=== PATIENT | male | born 1975 | race Caucasian/White ===

== ENCOUNTER 2021-05-04 08:43 | Emergency (ER) | payer BC ==
[~2021-05-04] VITALS: Ht 190 cm; Wt 122.0 kg
[2021-05-04] MEDS ORDERED: NITROGLYCERIN 0.4 MG SL TABS BTL 25'S SL PRN (09:30)
[2021-05-04] MEDS ORDERED: ASPIRIN 81 MG CHEW (CHILDREN'S ASA) PO ONE (09:30)
[2021-05-04] MEDS ORDERED: LACTATED RINGERS 1,000 ML IV ONE (09:30)
[2021-05-04] MEDS ORDERED: CATHETER FLUSH 10 ML SYR IV PRN (09:45)
[2021-05-04] MEDS ORDERED: NS 100 ML (IVPB) BAG IV ONE (09:45)
[2021-05-04] MEDS ORDERED: IOHEXOL 350 MG/ML 100 ML (OMNIPAQUE 350) VIAL IV ONE (09:45)
[2021-05-04] MEDS ORDERED: HOLD METFORMIN - RECEIVED CONTRAST 20 ML VIAL IV SCH (09:45)
--- NOTE | 2021-05-04 09:56 | ED Chest Pain ---
General Chief Complaint: COVID19 Suspect/Confirmed Stated Complaint: CP,COUGHING UP BLOOD,COVID+ Nursing Triage Note: Pt tested positive for COVID n 04/29, symptoms started on 04/28. Pt reports not sleeping well due to not using cpap for sleep apnea to try to keep machine clean from COVID. Pt also reports chest pain starting this morning. Pt is concerned about blood clots due to hx of blood clots in family. Pt vomited this morning with blood tinged emesis. Pt has not taken morning BP meds. Source: patient Exam Limitations: no limitations History of Present Illness Date Seen by Provider: May 04, 2021 Time Seen by Provider: 09:39 Initial Comments Patient to the ER by private conveyance with chief complaint that about 3 days ago he was diagnosed positive with COVID-19. Is been staying in his camper to stay away from people and not using his CPAP for sleep apnea because he says he does not sure how to clean it properly. He says he woke up several times in the night gasping for air and today he was having some persistent feeling of pressure or discomfort going from his left chest through to his back. He does not have a history of heart disease but he has hypertension. He has a significant family history of blood clots although he himself has never had a blood clot or pulmonary embolism. He had an episode of nausea and vomiting earlier today with stringy bloody mucus and is having occasional nonproductive cough. Nursing reports his vital signs are okay. He is not having a fever presently. No history of lung disease. He does take allergy medicines, losartan and Coreg. He is a strong history of GERD and has not been taking his GERD medicine today nor has he eaten very much in the last couple days. Allergies and Home Medications Allergies Coded Allergies: tizanidine (Unverified Allergy, Unknown, 05/04/21) Patient Home Medication List Home Medication List Reviewed: Yes Review of Systems Review of Systems Constitutional: No chills; malaise; No weakness EENTM: No Blurred Vision, No Double Vision Respiratory: Cough, Shortness of Air Cardiovascular: See HPI, Chest Pain; Denies Lightheadedness, Denies Palpitations, Denies Syncope Gastrointestinal: Denies Constipated, Denies Diarrhea; Nausea, Poor Appetite, Vomiting Genitourinary: Denies Discharge, Denies Drainage Musculoskeletal: No back pain, No joint pain Skin: No pruritus, No rash Psychiatric/Neurological: Denies Headache, Denies Numbness, Denies Paresthesia All Other Systems Reviewed Negative Unless Noted: Yes Past Wcdzuat-Eslprc-Nwwslp Hx Patient Social History Tobacco Use?: No Smoking Status: Never a Smoker Smokeless Tobacco Frequency: Former User Use of E-Cig and/or Vaping dev: No Substance use?: No Alcohol Use?: Yes Alcohol Frequency: Once in a while Past Medical History Surgery/Hospitalization HX: hypertension Physical Exam Vital Signs Vital Signs - First Documented 05/04/21 09:16 Temp 37.2 Pulse 85 Resp 18 B/P (MAP) 165/110 (128) Pulse Ox 97 O2 Delivery Room Air Capillary Refill : Less Than 3 Seconds Height, Weight, BMI Height: '" Weight: lbs. oz. kg; 33.00 BMI Method: General Appearance: WD/WN, Anxious, Mild Distress HEENT: PERRL/EOMI, Pharynx Normal, Moist Mucous Membranes Neck: Normal Inspection, Non Tender Respiratory: Lungs Clear, Normal Breath Sounds, No Accessory Muscle Use, No Respiratory Distress Cardiovascular: Regular Rate, Rhythm, No Edema, Normal Peripheral Pulses Gastrointestinal: Normal Bowel Sounds, Non Tender, Soft Extremity: Normal Capillary Refill, Normal Inspection, No Pedal Edema Neurologic/Psychiatric: Alert, Oriented x3 Skin: Normal Color, Warm/Dry Progress/Results/Core Measures Results/Orders Lab Results Laboratory Tests Test 05/04/21 09:39 05/04/21 11:15 Range/Units White Blood Count 2.8 L 4.3-11.0 10^3/uL Red Blood Count 4.63 4.30-5.52 10^6/uL Hemoglobin 15.3 13.3-17.7 g/dL Hematocrit 43 40-54 % Mean Corpuscular Volume 92 80-99 fL Mean Corpuscular Hemoglobin 33 25-34 pg Mean Corpuscular Hemoglobin Concent 36 32-36 g/dL Red Cell Distribution Width 12.4 10.0-14.5 % Platelet Count 107 L 130-400 10^3/uL Mean Platelet Volume 11.7 9.0-12.2 fL Immature Granulocyte % (Auto) 0 % Neutrophils (%) (Auto) 67 42-75 % Lymphocytes (%) (Auto) 19 12-44 % Monocytes (%) (Auto) 11 0-12 % Eosinophils (%) (Auto) 2 0-10 % Basophils (%) (Auto) 0 0-10 % Neutrophils # (Auto) 1.9 1.8-7.8 10^3/uL Lymphocytes # (Auto) 0.5 L 1.0-4.0 10^3/uL Monocytes # (Auto) 0.3 0.0-1.0 10^3/uL Eosinophils # (Auto) 0.1 0.0-0.3 10^3/uL Basophils # (Auto) 0.0 0.0-0.1 10^3/uL Immature Granulocyte # (Auto) 0.0 0.0-0.1 10^3/uL Percent Immature Platelet Fraction 5.0 0.0-7.6 % Prothrombin Time 12.7 12.2-14.7 SEC INR Comment 0.9 0.8-1.4 Activated Partial Thromboplast Time 29 24-35 SEC Sodium Level 141 135-145 MMOL/L Potassium Level 3.8 3.6-5.0 MMOL/L Chloride Level 107 98-107 MMOL/L Carbon Dioxide Level 22 21-32 MMOL/L Anion Gap 12 5-14 MMOL/L Blood Urea Nitrogen 14 7-18 MG/DL Creatinine 1.05 0.60-1.30 MG/DL Estimat Glomerular Filtration Rate 76 BUN/Creatinine Ratio 13 Glucose Level 132 H 70-105 MG/DL Calcium Level 9.0 8.5-10.1 MG/DL Corrected Calcium 8.9 8.5-10.1 MG/DL Magnesium Level 1.7 1.6-2.4 MG/DL Total Bilirubin 0.6 0.1-1.0 MG/DL Aspartate Amino Transf (AST/SGOT) 30 5-34 U/L Alanine Aminotransferase (ALT/SGPT) 34 0-55 U/L Alkaline Phosphatase 57 40-136 U/L Myoglobin 49.1 10.0-92.0 NG/ML Troponin I < 0.028 < 0.028 <0.028 NG/ML Total Protein 7.0 6.4-8.2 GM/DL Albumin 4.1 3.2-4.5 GM/DL My Orders Orders - HEIDI HORNE Covid-19 External Lab Results (05/04/21 09:22) Continuous Ekg Monitoring (05/04/21 09:24) Ekg Tracing (05/04/21:24) Troponin I (05/04/21:24) Covid-19 External Lab Results (05/04/21:24) Cbc With Automated Diff (05/04/21:24) Magnesium (05/04/21:24) Chest 1 View, Ap/Pa Only (05/04/21:24) Comprehensive Metabolic Panel (05/04/21:24) Myoglobin Serum (05/04/21:24) Protime With Inr (05/04/21:24) Partial Thromboplastin Time (05/04/21:24) O2 (05/04/21:) Monitor-Rhythm Ecg Trace Only (05/04/21:24) Ed Iv/Invasive Line Start (05/04/21:24) Nitroglycerin 0.4 Mg Btl 25's (Nitrostat (05/04/21 09:30) Aspirin Chewable Tablet (Baby Aspirin Ch (05/04/21 09:30) Ct Angio Chest W (05/04/21 09:28) Ed Iv/Invasive Line Start (05/04/21 09:28) Lactated Ringers (Lr 1000 Ml Iv Solution (05/04/21 09:30) Iohexol Injection (Omnipaque 350 Mg/Ml 1 (05/04/21 09:45) Received Contrast (Hold Metformin- Contr (05/04/21 09:45) Sodium Chloride Flush (Catheter Flush Sy (05/04/21 09:45) Ns (Ivpb) (Sodium Chloride 0.9% Ivpb Bag (05/04/21 09:45) Troponin I (05/04/21 11:45) Medications Given in ED Current Medications Medications Dose Ordered Sig/Nav Route Start Time Stop Time Status Last Admin Dose Admin Aspirin 324 mg ONCE ONCE PO 05/04/21 09:30 05/04/21 09:31 DC 05/04/21 09:40 324 MG Iohexol 100 ml ONCE ONCE IV 05/04/21 09:45 05/04/21 09:46 DC 05/04/21 10:36 87 ML Lactated Ringer's 1,000 ml @ 0 mls/hr Q0M ONCE IV 05/04/21 09:30 05/04/21 09:31 DC 05/04/21 09:42 999 MLS/HR Sodium Chloride 10 ml NEEDED PRN IV 05/04/21 09:45 05/04/21 10:36 10 ML Sodium Chloride 100 ml ONCE ONCE IV 05/04/21 09:45 05/04/21 09:46 DC 05/04/21 10:36 80 ML Vital Signs/I&O 05/04/21 09:16 Temp 37.2 Pulse 85 Resp 18 B/P (MAP) 165/110 (128) Pulse Ox 97 O2 Delivery Room Air Blood Pressure Mean: 128 Progress Progress Note #1: Time: 09:54 Progress Note Aspirin, a liter of IV fluids and plan to get a CT angiogram of the chest to rule out blood clots given his significant family history. Suspect his discomfort could also be related to GERD. Plan to get an EKG and troponin If he has a rule out negative troponin when his heart score is only 2 points, low risk and he can follow-up outpatient afterwards. Progress Note #2: Time: 12:46 Progress Note Delta troponin is negative. He does not require oxygen and would be a candidate for monoclonal antibodies. We did discuss that they are authorized under an emergency use authorization by the FDA. We also discussed alternatives, risks and benefits and using a clinically supported decision-making process the patient has elected to pursue them at this time. We provide him with a handout. Initial ECG Impression Date: May 04, 2021 Initial ECG Impression Time: 09:44 Initial ECG Rate: 77 Initial ECG Rhythm: Normal Sinus Initial ECG Intervals: Normal Initial ECG Impression: Normal Comment Normal sinus rhythm without clinically relevant ST elevation or depression Diagnostic Imaging Diagonstic Imaging: CT (Angiogram) Plain Films/CT/US/NM/MRI: chest Comments [facility], [place] NAME: BARRETT [facility] REC#: [id number] PT STATUS: REG ER : 1975 PHYSICIAN: HEIDI HORNE MD ADMIT DATE: 05/04/21/ER Draft Date of Exam:05/04/21 CT ANGIO CHEST W PROCEDURE: CT angiography of the chest with contrast. TECHNIQUE: Multiple contiguous axial images were obtained through the chest after uneventful bolus administration of intravenous contrast. 3D reconstructed CTA MIP acquisitions were also performed. Auto Exposure Controls were utilized during the CT exam to meet ALARA standards for radiation dose reduction. INDICATION: Suspicion for COVID, chest pain and hemoptysis. FINDINGS: The pulmonary arterial branches are patent. No filling defect. No PE is identified. The thoracic aorta is patent and nonaneurysmal. There is no pleural or pericardial effusion. Lungs do show some vague scattered ground-glass nodular opacities in the right greater than left upper lobes and minimally involving the lower lobes. Given the history, these are presumed to reflect pulmonary manifestation of COVID. No findings of lung abscess, empyema, or effusion. No pneumothorax. The visualized upper abdomen is unremarkable. IMPRESSION: 1. Mild scattered multifocal ground-glass pulmonary infiltrates suspect for pulmonary involvement by COVID. 2. Negative for PE or acute aortic disease, and no pleural pathology. Dictated on workstation # [id number] Dict: 05/04/21 1041 Trans: 05/04/21 1049 [id number] Interpreted by: DARLINE BOYD Electronically signed by: Reviewed: Reviewed by Me Diagonstic Imaging: Xray Plain Films/CT/US/NM/MRI: chest Comments [facility], [place] NAME: BARRETT [facility] REC#: [id number] PT STATUS: REG ER : 1975 PHYSICIAN: HEIDI HORNE MD ADMIT DATE: 05/04/21/ER Signed Date of Exam:05/04/21 CHEST 1 VIEW, AP/PA ONLY INDICATION: Chest pain. FINDINGS: The heart size, mediastinal configuration, and pulmonary vascularity are within normal limits. There is no pleural effusion, pneumothorax, or pneumonia. The osseous structures are unremarkable. IMPRESSION: No acute cardiopulmonary abnormality. Dictated by: Dictated on workstation # [id number] Dict: 05/04/21 1038 Trans: 05/04/21 1040 [id number] Interpreted by: JESSE RICHARDS MD Electronically signed by: JESSE RICHARDS MD 05/04/21 1040 Reviewed: Reviewed by Me Departure Impression Primary Impression: COVID-19 Disposition: 01 HOME, SELF-CARE Condition: Stable Departure-Patient Inst. Decision time for Depature: 12:49 Referrals: NO,LOCAL PHYSICIAN (PCP/Family) Primary Care Physician Patient Instructions: COVID-19 (DC), REGEN-COV (casirivimab and imdevimab) FDA Fact Sheet Add. Discharge Instructions: Drink lots of fluids. Tylenol 1000 mg every 8 hours as necessary for pain or fever. Ibuprofen 800 mg every 8 hours as necessary for pain or fever. Zofran 1 tablet every 6 hours as necessary for nausea and/or vomiting. Return to the ER for oxygen saturations consistently below 90% while at rest. Someone should contact you tomorrow or the following day to get scheduled for morning infusion of monoclonal antibodies. Tessalon Perles 1 capsule every 6 hours as necessary for cough. All discharge instructions reviewed with patient and/or family. Voiced u nderstanding. Scripts Benzonatate (Tessalon Perle) 100 Mg Capsule 100 MG PO Q6H PRN for COUGH, #20 CAP 0 Refills Prov: HEIDI HORNE 05/04/21 Ondansetron (Ondansetron Odt) 4 Mg Tab.rapdis 4 MG PO Q6H PRN for NAUSEA/VOMITING, #12 TAB 0 Refills Prov: HEIDI HORNE 05/04/21 Work/School Note: Work Release Form Date Seen in the Emergency Department: May 04, 2021 Return to Work: May 12, 2021 Restrictions: Return-No Fever (24hrs) Other Restrictions Listed Below: Off isolation when symptom-free 24H without meds to mask symptoms. HEIDI HORNE May 04, 2021 09:56
[2021-05-04 10:06] LABS: BASOPHILS % (AUTO) 0 % (0-10); HEMATOCRIT 43 % (40-54); MEAN CORPUSCULAR VOLUME 92 fL (80-99)
[2021-05-04 10:09] LABS: EOSINOPHILS # (AUTO) 0.1 10^3/uL (0.0-0.3); EOSINOPHILS % (AUTO) 2 % (0-10); HEMOGLOBIN 15.3 g/dL (13.3-17.7); LYMPHOCYTES # (AUTO) 0.5 10^3/uL (1.0-4.0); LYMPHOCYTES % (AUTO) 19 % (12-44); MEAN CORPUSCULAR HEMOGLOBIN 33 pg (25-34); MEAN CORPUSCULAR HGB CONC 36 g/dL (32-36); MEAN PLATELET VOLUME 11.7 fL (9.0-12.2); MONOCYTES # (AUTO) 0.3 10^3/uL (0.0-1.0); MONOCYTES % (AUTO) 11 % (0-12); NEUTROPHILS # (AUTO) 1.9 10^3/uL (1.8-7.8); NEUTROPHILS % (AUTO) 67 % (42-75); PLATELET COUNT 107 10^3/uL (130-400); WHITE BLOOD COUNT 2.8 10^3/uL (4.3-11.0)
[2021-05-04 10:12] LABS: ALBUMIN 4.1 GM/DL (3.2-4.5)
[2021-05-04 10:13] LABS: POTASSIUM 3.8 MMOL/L (3.6-5.0)
[2021-05-04 10:17] LABS: BILIRUBIN,TOTAL 0.6 MG/DL (0.1-1.0); INR 0.9 (0.8-1.4); PROTHROMBIN TIME PATIENT 12.7 SEC (12.2-14.7)
[2021-05-04 10:19] LABS: CREATININE SERUM 1.05 MG/DL (0.60-1.30)
[2021-05-04 10:21] LABS: MAGNESIUM 1.7 MG/DL (1.6-2.4)
--- NOTE | 2021-05-04 10:39 | Diagnostic Imaging Report ---
INDICATION: Chest pain. FINDINGS: The heart size, mediastinal configuration, and pulmonary vascularity are within normal limits. There is no pleural effusion, pneumothorax, or pneumonia. The osseous structures are unremarkable. IMPRESSION: No acute cardiopulmonary abnormality. Dictated by: Dictated on workstation # [id number]
--- NOTE | 2021-05-04 10:50 | Diagnostic Imaging Report ---
PROCEDURE: CT angiography of the chest with contrast. TECHNIQUE: Multiple contiguous axial images were obtained through the chest after uneventful bolus administration of intravenous contrast. 3D reconstructed CTA MIP acquisitions were also performed. Auto Exposure Controls were utilized during the CT exam to meet ALARA standards for radiation dose reduction. INDICATION: Suspicion for COVID, chest pain and hemoptysis. FINDINGS: The pulmonary arterial branches are patent. No filling defect. No PE is identified. The thoracic aorta is patent and nonaneurysmal. There is no pleural or pericardial effusion. Lungs do show some vague scattered ground-glass nodular opacities in the right greater than left upper lobes and minimally involving the lower lobes. Given the history, these are presumed to reflect pulmonary manifestation of COVID. No findings of lung abscess, empyema, or effusion. No pneumothorax. The visualized upper abdomen is unremarkable. IMPRESSION: 1. Mild scattered multifocal ground-glass pulmonary infiltrates suspect for pulmonary involvement by COVID. 2. Negative for PE or acute aortic disease, and no pleural pathology. Dictated by: Dictated on workstation # [id number]
[2021-05-04] MEDS ORDERED: BENZ-13 PO (12:51)
[2021-05-04] MEDS ORDERED: ONDA4TAB11 PO (12:51)
[2021-05-04 13:06] VITALS: BP 150/90
== END 2021-05-04 13:06 | disposition home or self-care (01) ==
LOC: ER 08:48
DX: U07.1 COVID-19 (principal); I10 Essential (primary) hypertension; G47.30 Sleep apnea, unspecified; Z87.891 Personal history of nicotine dependence; Z99.89 Dependence on other enabling machines and devices; Z73.0 Burn-out
CPT/HCPCS: 36415; 71045; 71275; 80053; 83735; 83874; 84484; 85025; 85610; 85730; 93005; 93041